=== PATIENT | male | born 1965 | race Caucasian/White ===

== ENCOUNTER 2019-04-25 21:34 | Emergency (ER) | payer OTHER ==
[~2019-04-25] VITALS: Ht 182.9 cm; Wt 110.7 kg
[~2019-04-25 21:34] MED LIST: AMPH12.53 PO; TRAM50TA92 PO
[2019-04-25 21:42] VITALS: BP_SYST 152
[2019-04-25] MEDS ORDERED: IPRATROPIUM/ALBUTEROL SULFATE 3 ML AMPUL.NEB (DUONEB) INH ONE (22:45)
[2019-04-26] MEDS ORDERED: AZITHROMYCIN 250 MG TABLET PO ONE
[2019-04-26 00:10] VITALS: BP_SYST 135
[2019-04-26] MEDS ORDERED: AZITHROMYCIN 250 MG TABLET ONE (00:17)
== END 2019-04-26 00:10 | disposition home or self-care (01) ==
LOC: SED 21:34
DX: J20.9 Acute bronchitis, unspecified (principal); Z79.899 Other long term (current) drug therapy
CPT/HCPCS: 71045; 93005; 94640; 99283; J7620; Q0144

== ENCOUNTER 2019-12-11 15:21 | Inpatient (IN) | payer OTHER ==
[~2019-12-11] VITALS: Ht 182.9 cm; Wt 122.5 kg
[2019-12-11 15:24] VITALS: BP_SYST 164
[2019-12-11] MEDS ORDERED: hydrALAZINE HCL 20 MG/ML VIAL IVP ONE (16:00)
[2019-12-11] MEDS ORDERED: ENALAPRILAT DIHYDRATE 1.25 MG/ML VIAL IVP ONE (16:00)
[2019-12-11 16:21] LABS: BASOPHILS # (AUTO) 0.1 K/uL (0.0-0.2); BASOPHILS % (AUTO) 0.7 % (0.0-2.0); EOSINOPHILS # (AUTO) 0.2 K/uL (0.0-0.4); EOSINOPHILS % (AUTO) 2.8 % (0.0-4.0); HEMATOCRIT 43.2 % (36-54); HEMOGLOBIN 14.7 g/dL (14.0-18.0); LYMPHOCYTES % (AUTO) 27.5 % (20.5-51.5); MEAN CORPUSCULAR HEMOGLOBIN 31 pg (27-31); MEAN CORPUSCULAR HGB CONC 34 % (32-36); MEAN CORPUSCULAR VOLUME 92 fL (79.0-98.0); MONOCYTES # (AUTO) 0.5 K/uL (0.0-1.0); MONOCYTES % (AUTO) 6.3 % (1.7-9.3); NEUTROPHILS # (AUTO) 4.6 K/uL (1.8-7.7); NEUTROPHILS % (AUTO) 62.7 % (40.0-70.0); PLATELET COUNT (AUTO) 209 K/uL (130-430); RED BLOOD CELL COUNT(AUTO) 4.68 MIL/uL (4.2-6.2); RED CELL DISTRIBUTION WIDTH 13.1 % (9.0-15.0); WHITE BLOOD COUNT (AUTO) 7.3 K/uL (4.8-10.8)
[2019-12-11 16:36] LABS: CALCIUM 9.4 mg/dL (8.4-11.0); CREATININE 1.05 mg/dL (0.55-1.30); POTASSIUM 3.9 mmol/L (3.5-5.1)
[2019-12-11 16:41] LABS: PROTHROMBIN TIME 9.7 SECS (9.5-12.5)
[2019-12-11 16:42] LABS: TOTAL BILIRUBIN 0.3 mg/dL (0.0-1.0)
[2019-12-11] MEDS ORDERED: NITROGLYCERIN 1 INCH (GM) OINT. TP ONE (17:30)
[2019-12-11] MEDS ORDERED: ASPIRIN 325 MG TABLET PO ONE (17:30)
[2019-12-11] MEDS ORDERED: MORPHINE 4 MG/ML INJ. SYRINGE IVP ONE (17:30)
[2019-12-11 18:34] VITALS: BP_SYST 130
[2019-12-11 20:00] VITALS: BP_SYST 119
[2019-12-11] MEDS ORDERED: KETOROLAC TROMETHAMINE 15 MG VIAL IVP PRN (21:15)
[2019-12-11] MEDS ORDERED: NITROGLYCERIN 0.4 MG TAB.SUBL SL PRN (21:30)
[2019-12-11] MEDS ORDERED: ASPIRIN 81 MG TAB.CHEW PO SCH (22:00)
[2019-12-11] MEDS ORDERED: PANTOPRAZOLE SODIUM 40 MG/VIAL (PROTONIX) IVP SCH (22:00)
[2019-12-12] VITALS: BP_SYST 107
[2019-12-12] MEDS: traMADol HCL HCL 50 MG TABLET (ULTRAM) PO PRN ×3 (00:23→12:51)
[2019-12-12 07:37] LABS: BASOPHILS % (AUTO) 0.9 % (0.0-2.0); EOSINOPHILS # (AUTO) 0.2 K/uL (0.0-0.4); EOSINOPHILS % (AUTO) 4.6 % (0.0-4.0); HEMATOCRIT 41.3 % (36-54); HEMOGLOBIN 13.9 g/dL (14.0-18.0); LYMPHOCYTES # (AUTO) 1.5 K/uL (1.0-5.5); LYMPHOCYTES % (AUTO) 32.4 % (20.5-51.5); MEAN CORPUSCULAR HEMOGLOBIN 31 pg (27-31); MEAN CORPUSCULAR HGB CONC 34 % (32-36); MEAN CORPUSCULAR VOLUME 92 fL (79.0-98.0); MONOCYTES # (AUTO) 0.4 K/uL (0.0-1.0); MONOCYTES % (AUTO) 8.7 % (1.7-9.3); NEUTROPHILS # (AUTO) 2.5 K/uL (1.8-7.7); NEUTROPHILS % (AUTO) 53.4 % (40.0-70.0); PLATELET COUNT (AUTO) 181 K/uL (130-430); RED CELL DISTRIBUTION WIDTH 13.3 % (9.0-15.0); WHITE BLOOD COUNT (AUTO) 4.7 K/uL (4.8-10.8)
[2019-12-12 08:00] VITALS: BP_SYST 115
[2019-12-12 08:16] LABS: ANION GAP 6 (5-15); CALCIUM 8.9 mg/dL (8.4-11.0); CHLORIDE 103 mmol/L (98-107); CREATININE 1.05 mg/dL (0.55-1.30); GFR AFRICAN AMERICAN 95 mL/min (>90); GLUCOSE 102 mg/dL (70-99); POTASSIUM 4.1 mmol/L (3.5-5.1); SODIUM SERUM 134 mmol/L (136-145); UREA NITROGEN, BLOOD 16 mg/dL (8-21)
[2019-12-12 08:17] LABS: CHOLESTEROL 188 mg/dL (<200); HDL CHOLESTEROL 58 mg/dL (>45); LDL CHOLESTEROL 116 mg/dL (<100); TRIGLYCERIDES 66 mg/dL (30-150)
[2019-12-12] MEDS ORDERED: ASPIRIN 81 MG TAB.CHEW PO SCH (09:00)
[2019-12-12] MEDS ORDERED: PANTOPRAZOLE SODIUM 40 MG/VIAL (PROTONIX) IVP SCH (09:00)
[2019-12-12] MEDS ORDERED: LOSARTAN POTASSIUM 50 MG TABLET (COZAAR) PO ONE (10:15)
[2019-12-12 12:00] VITALS: BP_SYST 103
[2019-12-12] MEDS ORDERED: LOSA50TA3 PO (18:50)
[2019-12-12] MEDS ORDERED: PRO40 PO (18:51)
[2019-12-12] MEDS ORDERED: ENOXAPARIN SODIUM 40 MG/0.4 ML SYRINGE SUBCUT SCH (21:00)
[2019-12-13] MEDS ORDERED: LOSARTAN POTASSIUM 50 MG TABLET (COZAAR) PO SCH (09:00)
[2019-12-13] MEDS ORDERED: PANTOPRAZOLE SODIUM 40 MG TAB PO SCH (09:00)
== END 2019-12-12 19:00 | disposition home or self-care (01) | DRG 392 ==
LOC: SED 15:21 → STU 18:04
PROVIDERS: ADMIT Family Medicine; ATTEND Family Medicine
DX: K21.9 Gastro-esophageal reflux disease without esophagitis (principal); E66.01 Morbid (severe) obesity due to excess calories; G89.29 Other chronic pain; I10 Essential (primary) hypertension; Z82.49 Family history of ischemic heart disease and other diseases of the circulatory system; Z68.36 Body mass index [BMI] 36.0-36.9, adult; Z79.899 Other long term (current) drug therapy
CPT/HCPCS: 36415; 71045; 80048; 80053; 80061; 82550-TC; 83880; 84484; 85025; 85379; 85610-TC; 85730-TC; 93005; 96374; 96375; 99291; C9113; G0378; J1885; J2270

== ENCOUNTER 2022-04-07 10:18 | Emergency (ER) | payer OTHER ==
[~2022-04-07] VITALS: Ht 182.9 cm; Wt 108.9 kg
[2022-04-07 10:18] VITALS: BP_SYST 108
[~2022-04-07 10:18] MED LIST changes: -AMPH12.53 PO; +LOSA50TA3 PO; +PRO40 PO
[2022-04-07] MEDS ORDERED: MORPHINE 4 MG INJ. 4 MG/ML VIAL IVP ONE (10:45)
[2022-04-07 11:07] LABS: BASOPHILS % (AUTO) 0.5 % (0.0-2.0); EOSINOPHILS # (AUTO) 0.2 K/uL (0.0-0.4); HEMATOCRIT 38.7 % (36-54); HEMOGLOBIN 12.8 g/dL (14.0-18.0); LYMPHOCYTES # (AUTO) 1.2 K/uL (1.0-5.5); MEAN CORPUSCULAR HEMOGLOBIN 29 pg (27-31); MEAN CORPUSCULAR HGB CONC 33 % (32-36); MEAN CORPUSCULAR VOLUME 89 fL (79.0-98.0); MONOCYTES # (AUTO) 0.4 K/uL (0.0-1.0); MONOCYTES % (AUTO) 8.5 % (1.7-9.3); NEUTROPHILS # (AUTO) 3.3 K/uL (1.8-7.7); PLATELET COUNT (AUTO) 190 K/uL (130-430); RED BLOOD CELL COUNT(AUTO) 4.36 MIL/uL (4.2-6.2)
[2022-04-07 11:30] LABS: ANION GAP 7 (5-15); CALCIUM 8.5 mg/dL (8.4-11.0); CHLORIDE 106 mmol/L (98-107); CREATININE 1.36 mg/dL (0.55-1.30); GLUCOSE 116 mg/dL (70-99); POTASSIUM 4.2 mmol/L (3.5-5.1); SODIUM SERUM 140 mmol/L (136-145); UREA NITROGEN, BLOOD 13 mg/dL (8-21)
[2022-04-07 11:36] LABS: GFR AFRICAN AMERICAN 70 mL/min (>90)
[2022-04-07 11:40] LABS: ALANINE AMINOTRANSFERASE 56 U/L (12-78); ALBUMIN 3.4 g/dL (3.4-4.8); ASPARTATE AMINOTRANSFERASE 33 U/L (10-37); TOTAL BILIRUBIN 0.3 mg/dL (0.0-1.0)
[2022-04-07] MEDS ORDERED: IOHEXOL 350 mgI/mL, 150 ML INFUS..BTL IV ONE (12:54)
[2022-04-07] MEDS ORDERED: HYDROcodone/ACETAMIN 5-325 MG TAB (NORCO/ VICODIN) PO ONE (15:00)
[2022-04-07 15:35] VITALS: BP_SYST 126
== END 2022-04-07 15:33 | disposition home or self-care (01) ==
LOC: SED 10:18
DX: F45.8 Other somatoform disorders (principal); G89.29 Other chronic pain; M54.2 Cervicalgia; M54.50 Low back pain, unspecified
CPT/HCPCS: 36415; 71045; 71275; 72125; 72128; 72131; 76376; 80053; 83880; 84484; 85025; 93005; 96374; 99285; J2270; Q9967

== ENCOUNTER 2022-05-31 10:37 | Emergency (ER) | payer OTHER ==
[~2022-05-31] VITALS: Ht 182.9 cm; Wt 117.9 kg
[2022-05-31 10:37] VITALS: BP_SYST 134
--- NOTE | 2022-05-31 10:40 | NUR ---
Placed in room 3 . Placed on shelter monitor, blood pressure machine and pulse oximeter. To gown for exam. Side rails up. Report given to PASQUALE CAMACHO.
--- NOTE | 2022-05-31 10:45 | NUR ---
Called Poison Control at [phone] and spoke with PAOLA. Per recommendations: CHARCOAL 100MG NOW, MONITOR FOR RESPIRATORY DISTRESS AND SUPPORTIVE MEASURES ONLY. Dr. MORALES notified. Will continue to monitor patient. Addendum: 05/31/22 at 1120 by [email or web address] Called Poison Control at [phone] and spoke with PAOLA. Per recommendations: CHARCOAL 100GM NOW, MONITOR FOR RESPIRATORY DISTRESS AND SUPPORTIVE MEASURES ONLY. Dr. MORALES notified. Will continue to monitor patient.
[2022-05-31] MEDS ORDERED: ACTIVATED CHARCOAL 50 GM ORAL.SUSP PO ONE ×2 (10:55→11:00)
--- NOTE | 2022-05-31 11:02 | NUR ---
Assumed care of patient APRIL from home stating he took (30) 0.5mg pills of alprazolam. He states he did not want to but that he has "a lot of hard stuff going on right now". He expressed his father is dying and it feels like too much. He is able to answer questions and follow commands. States his back pain is 7/10. Patient is A&Ox4, calm and cooperative. Will continue to monitor and intervene based on provider's orders.
--- NOTE | 2022-05-31 11:12 | NUR ---
LAB AT THE BEDSIDE FOR BLOOD DRAW
[2022-05-31 11:29] LABS: BASOPHILS % (AUTO) 0.6 % (0.0-2.0); EOSINOPHILS # (AUTO) 0.1 K/uL (0.0-0.4); EOSINOPHILS % (AUTO) 1.6 % (0.0-4.0); HEMATOCRIT 39.3 % (36-54); HEMOGLOBIN 13.2 g/dL (14.0-18.0); LYMPHOCYTES # (AUTO) 1.2 K/uL (1.0-5.5); LYMPHOCYTES % (AUTO) 22.7 % (20.5-51.5); MEAN CORPUSCULAR HEMOGLOBIN 30 pg (27-31); MEAN CORPUSCULAR HGB CONC 34 % (32-36); MEAN CORPUSCULAR VOLUME 89 fL (79.0-98.0); MONOCYTES # (AUTO) 0.3 K/uL (0.0-1.0); MONOCYTES % (AUTO) 6.5 % (1.7-9.3); NEUTROPHILS # (AUTO) 3.6 K/uL (1.8-7.7); NEUTROPHILS % (AUTO) 68.6 % (40.0-70.0); PLATELET COUNT (AUTO) 212 K/uL (130-430); RED BLOOD CELL COUNT(AUTO) 4.42 MIL/uL (4.2-6.2); RED CELL DISTRIBUTION WIDTH 13.8 % (9.0-15.0); WHITE BLOOD COUNT (AUTO) 5.3 K/uL (4.8-10.8)
[2022-05-31] MEDS ORDERED: BENZTROPINE MESYLATE 2 MG/ 2 ML AMP IVP ONE (11:30)
[2022-05-31] MEDS ORDERED: PROCHLORPERAZINE EDISYLATE 10 MG/2 ML VIAL IVP ONE (11:30)
[2022-05-31] MEDS ORDERED: NACL 0.9% 1,000 ML IV ONE (11:30)
[2022-05-31 11:46] LABS: ANION GAP 7 (5-15); CALCIUM 8.4 mg/dL (8.4-11.0); CHLORIDE 105 mmol/L (98-107); CREATININE 1.22 mg/dL (0.55-1.30); GLUCOSE 124 mg/dL (70-99); POTASSIUM 3.7 mmol/L (3.5-5.1); SODIUM SERUM 141 mmol/L (136-145); UREA NITROGEN, BLOOD 16 mg/dL (8-21)
[2022-05-31 11:52] LABS: GFR AFRICAN AMERICAN 79 mL/min (>90)
[2022-05-31 11:53] LABS: ALANINE AMINOTRANSFERASE 36 U/L (12-78); ALBUMIN 3.5 g/dL (3.4-4.8); ASPARTATE AMINOTRANSFERASE 24 U/L (10-37); TOTAL BILIRUBIN 0.6 mg/dL (0.0-1.0)
[2022-05-31 11:54] LABS: ACETAMINOPHEN < 1 ug/mL (1-30); ALCOHOL, BLOOD < 3 mg/dL (<10)
--- NOTE | 2022-05-31 12:01 | NUR ---
COVID SWAB DONE AND SENT TO LAB
--- NOTE | 2022-05-31 12:08 | NUR ---
PORTABLE XRAY AT THE BEDSIDE
--- NOTE | 2022-05-31 12:25 | NUR ---
PT'S IV INFILTRATED ON LEFT HAND, BLEEDING CONTROLLED AND GAUZE APPLIED.
--- NOTE | 2022-05-31 12:29 | NUR ---
# 20 gauge angiocath placed to RAC. Use of asceptic technique. Opsite placed over site. Blood return noted. Flushed with 10 cc of normal saline. No evidence of infiltration noted. Patient tolerated well.
[2022-05-31 13:03] LABS: ALCOHOL, BLOOD < 3 mg/dL (<10)
--- NOTE | 2022-05-31 13:20 | NUR ---
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
--- NOTE | 2022-05-31 13:46 | NUR ---
FOLLOWUP CALL WITH POISON CONTROL FOR STATUS UPDATE.
--- NOTE | 2022-05-31 14:03 | NUR ---
Pt is in bed, rails up bed down, pt is restless in bed inaudible sounds. VSS.
--- NOTE | 2022-05-31 19:38 | NUR ---
Pt in 5 at this time. All potentially dangerous objects removed from patient and patient's bedside. Pt states "I do not feel like hurting myself or anyone else at this time". Pt also states "I have never had this happen before". 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 Vitals WNL. Respirations even and unlabored.
--- NOTE | 2022-05-31 22:33 | NUR ---
Pt's updated on patient's plan of care at this time
--- NOTE | 2022-06-01 00:17 | NUR ---
Pt speaking to on the phone at this time. Pt given update on status and plan of care regarding 5150 hold.
--- NOTE | 2022-06-01 01:48 | NUR ---
Spoke to Chetan on the phone from [facility] regarding psychiatric admitting. CARSON made aware and speaking to Chetan.
--- NOTE | 2022-06-01 01:55 | NUR ---
[facility] accepted patient. Intake Nurse Osmel called to accept patient Admittig physician Dr. Bansal [facility] Call report to [phone] ext [phone]
--- NOTE | 2022-06-01 06:08 | NUR ---
Pt sleeping at this time. No signs of acute distress. Potentially dangerous and harmful items remain away from patient's bedside. Respirations even and unlabored. Normal skin color ethnicity.
--- NOTE | 2022-06-01 07:05 | NUR ---
Attmempted to call [facility] to inform them S is taking patient to their facility at this time. Facility did not answer
--- NOTE | 2022-06-01 07:10 | NUR ---
Attmempted to call [facility] to inform them S is taking patient to their facility at this time. Facility did not answer
--- NOTE | 2022-06-01 07:15 | NUR ---
Attmempted to call [facility] to inform them S is taking patient to their facility at this time. Facility did not answer x 3 for this time.
--- NOTE | 2022-06-01 07:16 | NUR ---
[facility] transport at bedside to take patient to [facility]
--- NOTE | 2022-06-01 07:44 | NUR ---
Contacted pt Johanna at [phone] . Pt states watch, chain, wallet and belongings were taken by Johanna.
--- NOTE | 2022-06-01 08:50 | NUR ---
Pt BP 138/78 . AAOx4, Pt noted Losartan reg. BP Medication. Notified DR Villa.
[2022-06-01 11:47] VITALS: BP_SYST 146
--- NOTE | 2022-06-01 11:51 | NUR ---
Stable VSS Denies SI Has been accepted at [facility] Report given Ambulated to exit
[2022-06-01 12:52] LABS: BARBITURATE, URINE NEGATIVE (NEG <=200); BENZODIAZEPINE, URINE POSITIVE (NEG <=150); CANNABINOID, URINE NEGATIVE (NEG <=50); COCAINE, URINE POSITIVE (NEG <=150); METHAMPHETAMINES SCREEN,URINE NEGATIVE (NEG <=500); OPIATE, URINE NEGATIVE (NEG <=100); PHENCYCLIDINE SCREEN,URINE NEGATIVE (NEG <=25); UR TRICYCLIC ANTIDEPRESSANTS NEGATIVE (NEG <=300); URINE AMPHETAMINE NEGATIVE (NEG <=500); URINE METHADONE NEGATIVE (NEG <=200); URINE OXYCODONE SCREEN NEGATIVE (NEG <=100); URINE PROPOXYPHENE SCREEN NEGATIVE (NEG <=300)
[2022-06-01 13:03] LABS: BILIRUBIN,URINE NEGATIVE (NEGATIVE); BLOOD, URINE NEGATIVE (NEGATIVE); CLARITY/URINE CLEAR (CLEAR); COLOR,URINE YELLOW (YELLOW); GLUCOSE,URINE NEGATIVE (NEGATIVE); KETONES,URINE NEGATIVE (NEGATIVE); LEUKOCYTE ESTERASE ,URINE NEGATIVE (NEGATIVE); NITRITE, URINE NEGATIVE (NEGATIVE); PROTEIN URINE NEGATIVE (NEGATIVE); UROBILINOGEN,URINE 0.2 (0.2-1.0)
== END 2022-06-01 11:51 ==
LOC: SED 10:37
DX: T42.4X2A Poisoning by benzodiazepines, intentional self-harm, initial encounter (principal); F10.229 Alcohol dependence with intoxication, unspecified; F13.20 Sedative, hypnotic or anxiolytic dependence, uncomplicated; F12.90 Cannabis use, unspecified, uncomplicated; Z79.899 Other long term (current) drug therapy; Z20.822 Contact with and (suspected) exposure to COVID-19; Y92.89 Other specified places as the place of occurrence of the external cause
CPT/HCPCS: 99291; 96374; 71045; 96361; 96375; 87426; 80307; 80053; 83735; 85025; 36415; 93005; 81003; J0515; J0780; J7030; G0480; G0481; G0482

== ENCOUNTER 2024-04-20 19:19 | Emergency (ER) | payer OTHER ==
[~2024-04-20] VITALS: Ht 182.9 cm; Wt 117.9 kg
[~2024-04-20 19:19] MED LIST changes: +LOSA-413 PO; -LOSA50TA3 PO
[2024-04-20 19:23] VITALS: BP_SYST 146; PULSE 76; RESP 20; TEMP 97.6; O2SAT 96
[2024-04-20] MEDS: ASPIRIN 325 MG TABLET PO ONE (20:04)
[2024-04-20 20:21] LABS: ANION GAP 3 (5-15); CALCIUM 8.7 mg/dL (8.4-11.0); CARBON DIOXIDE 32 mmol/L (23-29); CHLORIDE 106 mmol/L (98-107); CREATININE 1.23 mg/dL (0.55-1.30); GFR AFRICAN AMERICAN 78 mL/min (>90); GLUCOSE 87 mg/dL (74-106); POTASSIUM 4.2 mmol/L (3.5-5.1); SODIUM SERUM 141 mmol/L (136-145); UREA NITROGEN, BLOOD 12 mg/dL (8-21)
[2024-04-20 20:23] LABS: GFR NON AFRICAN-AMERICAN 64 mL/min (>90)
[2024-04-20] MEDS: MORPHINE 2 MG/ML INJ. SYRINGE IVP ONE (21:05)
[2024-04-20] MEDS: MORPHINE 4 MG INJ. 4 MG/ML VIAL IVP ONE (22:36)
[2024-04-20] MEDS: NITROGLYCERIN 1 INCH (GM) OINT. TP ONE (22:37)
[2024-04-20] MEDS ORDERED: iohexoL 350 mgI/mL, 100 ML INFUS..BTL IV ONE (23:18)
[2024-04-21 00:20] VITALS: BP_SYST 118; PULSE 60; RESP 17; TEMP 97.8; O2SAT 95
[2024-04-21 00:31] LABS: BARBITURATE, URINE NEGATIVE (NEG <=200); BENZODIAZEPINE, URINE POSITIVE (NEG <=150); CANNABINOID, URINE NEGATIVE (NEG <=50); COCAINE, URINE NEGATIVE (NEG <=150); METHAMPHETAMINES SCREEN,URINE NEGATIVE (NEG <=500); OPIATE, URINE POSITIVE (NEG <=100); PHENCYCLIDINE SCREEN,URINE NEGATIVE (NEG <=25); UR TRICYCLIC ANTIDEPRESSANTS NEGATIVE (NEG <=300); URINE AMPHETAMINE NEGATIVE (NEG <=500); URINE METHADONE NEGATIVE (NEG <=200); URINE OXYCODONE SCREEN NEGATIVE (NEG <=100)
== END 2024-04-21 01:38 | disposition home or self-care (01) ==
LOC: SED 19:19
DX: R07.89 Other chest pain (principal); R06.02 Shortness of breath; I10 Essential (primary) hypertension; Z86.711 Personal history of pulmonary embolism; Z79.899 Other long term (current) drug therapy
CPT/HCPCS: 99285; 96374; 71275; 71045; 80307; 80048; 85379; 84484; 36415; 93005; 96376; Q9967; J2270 ×2